=== PATIENT | male | born 1990 | race Caucasian/White ===

== ENCOUNTER → 2021-03-09 08:30 | Outpatient (CLI) | payer OTHER, SELFPAY ==
--- NOTE | 2021-03-09 | DI.RAD.S_ITS ---
PROCEDURE: FL SHOULDER INJECTION MR/CT RT INDICATIONS: other instability, unspecified shoulder COMPARISON: [facility], MR, MR SHOULDER RT W CON, 03/09/2021, 9:30. TECHNIQUE: The indications, alternatives, benefits, risks, and complications of the procedure were explained to the patient. Written informed consent was obtained and placed in the chart. The shoulder was examined fluoroscopically and a site for needle placement chosen for entry into the glenohumeral joint from an anterior approach. The skin was prepped and draped in a sterile fashion, and 1% lidocaine infiltrated from skin down to joint capsule. A spinal needle was inserted into the glenohumeral joint, and a small amount of iodinated contrast media injected to confirm intra-articular placement of the needle tip. This was followed by approximately 12 mL dilute solution of a gadolinium containing MR contrast agent. The needle was removed and a dressing was applied. The patient was given postprocedural instructions and sent to the MR suite for MR imaging. FINDINGS: A single fluoroscopic spot image demonstrates intra-articular location of injected iodinated contrast. IMPRESSION: Successful fluoroscopically guided administration of dilute Gadolinium solution into the shoulder joint for MR arthrogram. Dictated by: Omid Myers M.D. on 03/09/2021 at 10:09 Approved by: Omid Myers M.D. on 03/09/2021 at 10:10
--- NOTE | 2021-03-09 | DI.MRI.S_ITS ---
PROCEDURE: MR SHOULDER RT W CON INDICATIONS: other instability, unspecified shoulder TECHNIQUE: After the administration of 12 mL of dilute intra-articular Gadolinium contrast, oblique coronal T1 and T2 spin echo with fat saturation, oblique sagittal T1 spin echo with and without fat saturation, oblique sagittal T2 fast spin echo with fat saturation, axial T1 spin echo with fat saturation through the shoulder. COMPARISON: None. FINDINGS: Rotator cuff: Severe supraspinatus tendinopathy with low-grade partial thickness articular and bursal sided tear. No full-thickness defect is seen. There is infraspinatus tendinopathy with mild articular surface fraying. Teres minor tendon appears intact. Mild subscapularis tendinopathy and thickening. No atrophy of the rotator cuff muscles. Bones and bursae: No bone marrow contusions or fractures. Moderate acromioclavicular joint degeneration. Acromion demonstrates conventional anatomy, without an os acromiale. No subacromial-subdeltoid bursitis. Capsule and soft tissues: Labrum: Superior labral fraying is present and there is also posterior labral blunting and ill-defined irregularity. There is slight posterior subluxation of the humeral head relative to the glenoid image 12/5 which raise the possibility of microinstability. Biceps tendon: Long head of the biceps tendon intact. Rotator interval: Partial obliteration of the subcoracoid fat signal intensity. Coracohumeral ligament: Not well seen and there is amorphous heterogeneous signal intensity in its expected location. IMPRESSION: Low-grade partial-thickness rotator cuff tear as above. Superior and posterior segment labral tear. Posterior subluxed appearance of the humeral head relative to the glenoid which raises the possibility of microinstability. Rupture of the coracohumeral ligament. Associated signal changes involving the rotator interval. This raises the possibility of biceps romero instability. Differential includes adhesive capsulitis. Please correlate to exam findings. Dictated by: Pankaj Kinney M.D. on 03/09/2021 at 10:26 Approved by: Pankaj Kinney M.D. on 03/09/2021 at 10:43
== END ==
DX: M25.311 Other instability, right shoulder (principal); M75.111 Incomplete rotator cuff tear or rupture of right shoulder, not specified as traumatic; S43.491A Other sprain of right shoulder joint, initial encounter; S43.411A Sprain of right coracohumeral (ligament), initial encounter; M19.011 Primary osteoarthritis, right shoulder
CPT/HCPCS: 23350; 73222; 77002

== ENCOUNTER → 2021-03-11 08:40 | Outpatient (CLI) | payer OTHER, SELFPAY ==
--- NOTE | 2021-03-11 | DI.MRI.S_ITS ---
PROCEDURE: MR SHOULDER LT W CON INDICATIONS: Other instability, Left shoulder TECHNIQUE: After the administration of 12 mL of dilute intra-articular Gadolinium contrast, oblique coronal T1 and T2 spin echo with fat saturation, oblique sagittal T1 spin echo with and without fat saturation, oblique sagittal T2 fast spin echo with fat saturation, axial T1 spin echo with fat saturation through the shoulder. COMPARISON: [facility], MR, MR SHOULDER RT W CON, 03/09/2021, 9:30. FINDINGS: Rotator cuff: Supraspinatus tendinopathy with low-grade bursal surface fraying. Infraspinatus and teres minor tendons appear intact. There is thickening and signal changes present within the subscapularis tendon which is probably related to the injection. No atrophy of the rotator cuff muscles. Bones and bursae: No bone marrow contusions or fractures. Mild acromioclavicular joint degeneration. Acromion demonstrates conventional anatomy, without an os acromiale. Mild subacromial-subdeltoid bursitis. Capsule and soft tissues: Labrum: Minimal fraying of the superior labrum which could be age appropriate. Mild irregularity of the anteroinferior segment, with amorphous signal changes however not well evaluated due to motion artifact on the axial pulse sequence. The appearance could be probably related to close apposition of the inferior glenohumeral ligament. Of note, no definite adjacent chondral loss or focal segmental glenoid rim degeneration. No discrete intrasubstance gadolinium signal intensity. Biceps tendon: Long head of the biceps tendon intact. Rotator interval: Normal signal intensity. Coracohumeral ligament: Intact. IMPRESSION: Mild bursal surface fraying of the supraspinatus tendon with mild adjacent subacromial-subdeltoid bursitis. Mild irregularity of the anteroinferior labrum, which is partially obscured by motion artifact . Please see comment above. A discrete tear is not well seen. Dictated by: Pankaj Kinney M.D. on 03/11/2021 at 12:36 Approved by: Pankaj Kinney M.D. on 03/11/2021 at 12:46
--- NOTE | 2021-03-11 | DI.RAD.S_ITS ---
PROCEDURE: FL SHOULDER INJECTION MR/CT LT INDICATIONS: Other instability, Left shoulder COMPARISON: None. TECHNIQUE: The indications, alternatives, benefits, risks, and complications of the procedure were explained to the patient. Written informed consent was obtained and placed in the chart. The shoulder was examined fluoroscopically and a site for needle placement chosen for entry into the glenohumeral joint from an anterior approach. The skin was prepped and draped in a sterile fashion, and 1% lidocaine infiltrated from skin down to joint capsule. A spinal needle was inserted into the glenohumeral joint, and a small amount of iodinated contrast media injected to confirm intra-articular placement of the needle tip. This was followed by approximately 12 mL dilute solution of a gadolinium containing MR contrast agent. The needle was removed and a dressing was applied. The patient was given postprocedural instructions and sent to the MR suite for MR imaging. FINDINGS: A single fluoroscopic spot image demonstrates intra-articular location of injected iodinated contrast. IMPRESSION: Successful fluoroscopically guided administration of dilute Gadolinium solution into the shoulder joint for MR arthrogram. Dictated by: Desmond Moran M.D. on 03/11/2021 at 9:42 Approved by: Desmond Moran M.D. on 03/11/2021 at 9:43
== END ==
DX: M25.312 Other instability, left shoulder (principal); M75.52 Bursitis of left shoulder
CPT/HCPCS: 23350; 73222; 77002